=== PATIENT | male | born 1960 | race Caucasian/White ===

== ENCOUNTER 2017-11-23 11:00 | Emergency (ER) | payer MEDICARE ==
[~2017-11-23] VITALS: Ht 180.3 cm; Wt 80.7 kg
[~2017-11-23 11:00] MED LIST: ASPIR-LOW81 MG PO; CIPRO500 MG PO; LIPITOR80 MG PO; NORVASC5 MG PO; ZESTRIL20 MG PO
[2017-11-23] MEDS ORDERED: XANAX0.5 MG PO (12:43)
--- NOTE | 2017-11-24 07:15 | EKG ---
[facility] [address] [facility] [place] [address] Signed Sinus bradycardia Minimal voltage criteria for LVH, may be normal variant Borderline ECG No previous ECGs available Confirmed by RAHEEL DORSEY MD ([id number]) on 11/24/2017 7:15:19 AM Electronically Signed By: RAHEEL DORSEY MD 11/24/17 0715 PATIENT NAME: SUSHIL MATTHEWS Electrocardiogram DATE OF : 56 PHYSICIAN: RAHEEL DORSEY MD REPORT #: [id number] REPORT IS CONFIDENTIAL AND NOT TO BE RELEASED WITHOUT AUTHORIZATION
== END 2017-11-23 13:34 | disposition home or self-care (01) ==
LOC: ED 11:00
DX: R07.89 Other chest pain (principal); F06.4 Anxiety disorder due to known physiological condition; I10 Essential (primary) hypertension; Z87.891 Personal history of nicotine dependence; Z88.5 Allergy status to narcotic agent; Z79.82 Long term (current) use of aspirin; Z79.899 Other long term (current) drug therapy
CPT/HCPCS: 71045; 80048; 81001; 84484; 85025; 93005; 93010; 96374; 99283; J2060

== ENCOUNTER 2018-01-15 09:40 | Emergency (ER) | payer MEDICARE ==
[~2018-01-15] VITALS: Ht 180.3 cm; Wt 80.7 kg
--- OUTSIDE RECORDS SUMMARY | ~2018-01-15 | XMS | Clinical Summary ---
Demographics + + + | Address | [address] | | | [place] [address] | + + + | Home Phone | | + + + | Preferred Language | Unknown | + + + | Marital Status | Single | + + + | Christian Affiliation | Unknown | + + + | Race | Unknown | + + + | Ethnic Group | Unknown | + + + Author + + + | Author | [facility] | | | and [place] | + + + | Organization | [facility] | | | and [place] | + + + | Address | Unknown | + + + | Phone | Unavailable | + + + Support + + + + + | Name | Relationship | Address | Phone | + + + + + | Manuel Matthews | ECON | [address] | | | | [place], [place] | | | | | [address] | | + + + + + Care Team Providers + +------+ + | Care Instructor Private Name | Role | Phone | + +------+ + | Alber Sorensen DO | PP | Unavailable | + +------+ + Allergies + + + + + + | Active Allergy | Reactions | Severity | Noted | Comments | | | | | Date | | + + + + + + | Hydrocodone | Itching | Medium | 11/07/19 | | | | | | 16 | | + + + + + + | Hydrocodone-Acetamin | Itching | Low | | | | ophen | | | | | + + + + + + Current Medications + + +-------+---------+------+------+-------+ | Prescription | Sig. | Disp. | Refills | Star | End | Statu | | | | | | t | Date | s | | | | | | Date | | | + + +-------+---------+------+------+-------+ | lisinopril | | | | 09/1 | | Activ | | (PRINIVIL, ZESTRIL) | | | | 4/20 | | e | | 20 mg tablet | | | | 12 | | | + + +-------+---------+------+------+-------+ | amLODIPine | Take 5 mg by mouth. | | | | | Activ | | (NORVASC) 5 mg | | | | | | e | | tablet | | | | | | | + + +-------+---------+------+------+-------+ | aspirin 81 mg EC | Take 81 mg by mouth. | | | | | Activ | | tablet | | | | | | e | + + +-------+---------+------+------+-------+ | | Take 1 tablet by | | | | | Activ | | oxyCODONE-acetaminop | mouth. | | | | | e | | hen (PERCOCET) 5-325 | | | | | | | | mg per tablet | | | | | | | + + +-------+---------+------+------+-------+ | atorvaSTATin | Take 20 mg by mouth | | | | | Activ | | (LIPITOR) 20 mg | nightly. | | | | | e | | tablet | | | | | | | + + +-------+---------+------+------+-------+ Active Problems + + + | Problem | Noted Date | + + + | Foraminal stenosis of cervical region | 05/18/2017 | + + + | Cervical cord myelomalacia (HCC) | 11/05/2014 | + + + | S/P cervical spinal fusion | 11/05/2014 | + + + | Degenerative disc disease, cervical | 11/05/2014 | + + + | Spondylolisthesis of lumbar region | 11/05/2014 | + + + | Foraminal stenosis of lumbar region | 11/05/2014 | + + + | Degenerative disc disease, lumbar | 11/05/2014 | + + + | CARPAL TUNNEL SYNDROME | | + + + | METATARSALGIA | | + + + | DISC DISEASE, LUMBOSACRAL SPINE | | + + + | DISC DISEASE, CERVICAL | | + + + | ARTHROSCOPY, HX OF CERVICAL | | + + + | CERVICAL RADICULOPATHY | | + + + | SPONDYLOLISTHESIS | | + + + | SHOULDER PAIN, BILATERAL | | + + + Encounters +--------+ + + + + | Date | Type | Specialty | Care Team | Description | +--------+ + + + + | 01/11/ | Telephone | | Mike Feliciano MD | Referral Question | | 2018 | | | | | +--------+ + + + + from Last 3 Months Family History + + +------+ + | Medical History | Relation | Name | Comments | + + +------+ + | Other (see comment) | Father | | Heart problems (Heart bypass) | + + +------+ + | No Known Problems | Maternal | | | | | Grandfath | | | | | er | | | + + +------+ + | No Known Problems | Maternal | | | | | Grandmoth | | | | | er | | | + + +------+ + | Other (see comment) | Mother | | Heart problems (Heart bypass) | + + +------+ + | No Known Problems | Paternal | | | | | Grandfath | | | | | er | | | + + +------+ + | No Known Problems | Paternal | | | | | Grandmoth | | | | | er | | | + + +------+ + | No Known Problems | Son | | | + + +------+ + + +------+--------+ + | Relation | Name | Status | Comments | + +------+--------+ + | Father | | Other | STATUS UNKNOWN | + +------+--------+ + | Maternal Grandfather | | Other | STATUS UNKNOWN | + +------+--------+ + | Maternal Grandmother | | Other | STATUS UNKNOWN | + +------+--------+ + | Mother | | Other | STATUS UNKNOWN | + +------+--------+ + | Paternal Grandfather | | Other | STATUS UNKNOWN | + +------+--------+ + | Paternal Grandmother | | Other | STATUS UNKNOWN | + +------+--------+ + | Son | | Alive | | + +------+--------+ + Social History + +-------+ +--------+ + | Tobacco Use | Types | Packs/Day | Years | Date | | | | | Used | | + +-------+ +--------+ + | Former Smoker | | 0.5 | 30 | Quit: 2016 | + +-------+ +--------+ + + +---+---+---+ | Smokeless Tobacco: | | | | | Never Used | | | | + +---+---+---+ + + +---------+ + | Alcohol Use | Drinks/We | oz/Week | Comments | | | ek | | | + + +---------+ + | Yes | | | Rare | + + +---------+ + + + + | Sex Assigned at | Date Recorded | | | | + + + | Not on file | | + + + Last Filed Vital Signs + + + + | Vital Sign | Reading | Time Taken | + + + + | Blood Pressure | 137/77 | 05/18/20171241 PDT | + + + + | Pulse | 60 | 05/18/20171241 PDT | + + + + | Temperature | - | - | + + + + | Respiratory Rate | 16 | 05/18/20171241 PDT | + + + + | Oxygen Saturation | - | - | + + + + | Inhaled Oxygen | - | - | | Concentration | | | + + + + | Weight | 73 kg (161 lb) | 05/18/20171241 PDT | + + + + | Height | 180.3 cm (5' 11") | 05/18/20172 PDT | + + + + | Body Mass Index | 22.45 | 05/18/20171241 PDT | + + + + Plan of Treatment + + + + + | Health Maintenance | Due Date | Last Done | Comments | + + + + + | Hepatitis C | | | | | Screening | 8 | | | + + + + + | Vaccine: | | | | | Dtap/Tdap/Td (1 - | 7 | | | | Tdap) | | | | + + + + + | COLON CANCER | | | | | SCREENING | 8 | | | | (COLONOSCOPY EVERY | | | | | 10 YEARS 50-75) | | | | + + + + + | Statin Therapy | | | | | (optimal intensity) | 5 | | | + + + + + | Vaccine: Influenza | | | | | (Season Ended) | 8 | | | + + + + + Results Not on filefrom Last 3 Months Insurance + +--------+ +--------+ +---------+ | Payer | Benefi | Subscriber | Type | Phone | Address | | | t Plan | ID | | | | | | / | | | | | | | Group | | | | | + +--------+ +--------+ +---------+ | MEDICARE | MEDICA | xxxxxxxxxx | Medica | [phone] | | | RE | | re | [phone] | | | | PART A | | | | | | | AND B | | | | | + +--------+ +--------+ +---------+ + +--------+ +--------+ + + | Guarantor Name | Accoun | Relation to | Date | Phone | Billing Address | | | t Type | Patient | of | | | | | | | | | | + +--------+ +--------+ + + | TRAVIS MATTHEWS | Person | Self [birth year] | Home: | [address] | | | al/Fam | | 1960 | [phone] | [place] [address] | | | [place]a | | | [phone] | | + +--------+ +--------+ + +
--- OUTSIDE RECORDS SUMMARY | ~2018-01-15 | XMS | Encounter Summary ---
Demographics + + + | Address | [address] | | | [place] [address] | + + + | Home Phone | | + + + | Preferred Language | Unknown | + + + | Marital Status | Single | + + + | Rastafari Affiliation | Unknown | + + + | Race | Unknown | + + + | Ethnic Group | Unknown | + + + Author + + + | Author | [facility] | | | and [place] | + + + | Organization | [facility] | | | and [place] | + + + | Address | Unknown | + + + | Phone | Unavailable | + + + Support + + + + + | Name | Relationship | Address | Phone | + + + + + | Manuel Stone | ECON | [address] | | | | | [place] | | | | | [address] | | + + + + + Care Team Providers + +------+ + | Care Net Developer Architect Name | Role | Phone | + +------+ + | Alber Sorensen DO | PCP | Unavailable | + +------+ + Reason for Visit + + + | Reason | Comments | + + + | Referral Question | | + + + Encounter Details +--------+ + + + + | Date | Type | Department | Care Team | Description | +--------+ + + + + | 01/11/ | Telephone | [facility] | Mike Feliciano MD | Referral Question | | 2018 | | NEUROSUR[address]ERY [address] | [address] [place] | | | | | [address] | [address] [place], [place] | | | | | [place], [place] | [address] | | | | | [address] | | | | | | [phone] | | | +--------+ + + + + Social History + +-------+ +--------+ + [...] on file | | + + + as of this encounter Plan of Treatment Not on fileas of this encounter Visit Diagnoses Not on filein this encounter"
--- OUTSIDE RECORDS SUMMARY | ~2018-01-15 | XMS | Clinical Summary ---
Demographics + + + | Address | [address] | | | [place] [address] | + + + | Home Phone | | + + + | Preferred Language | Unknown | + + + | Marital Status | Single | + + + | Advent Affiliation | Unknown | + + + | Race | Unknown | + + + | Ethnic Group | Unknown | + + + Author + + + | Author | [facility] | + + + | Organization | [facility] | + + + | Address | Unknown | + + + | Phone | Unavailable | + + + Support + + +---------+ + | Name | Relationship | Address | Phone | + + +---------+ + | Manuel Matthews | ECON | Unknown | | + + +---------+ + Care Team Providers + +------+ + | Care Technical Administrator Name | Role | Phone | + +------+ + | Donnell Sorensen DO | PP | | + +------+ + Allergies + + [...] | amLODIPine | Take 5 mg by mouth | | | | | Activ | | (NORVASC) 5 MG | daily. | | | | | e | | tablet | | | | | | | + + +-------+---------+------+------+-------+ | aspirin EC 81 MG | Take 81 mg by mouth | | | | | Activ | | EC tablet | daily with | | | | | e | | | breakfast. | | | | | | + + +-------+---------+------+------+-------+ | atorvastatin | Take 80 mg by mouth | | | | | Activ | | (LIPITOR) 80 MG | nightly. | | | | | e | | tablet | | | | | | | + + +-------+---------+------+------+-------+ | lisinopril | Take 20 mg by mouth | | | | | Activ | | (ZESTRIL) 20 MG | daily. | | | | | e | | tablet | | | | | | | + + +-------+---------+------+------+-------+ | | Take 1 tablet by | | | | | Activ | | oxyCODONE-acetaminop | mouth every 4 (four) | | | | | e | | hen (PERCOCET) 5-325 | hours as needed for | | | | | | | MG per tablet | Pain. | | | | | | + + +-------+---------+------+------+-------+ Active Problems Not on file Family History + + +------+ + | Medical History | Relation | Name | Comments | + + +------+ + | Peripheral vascular | Brother | | | | disease | | | | + + +------+ + | Coronary art dis | Father | | | + + +------+ + | Peripheral vascular | Mother | | | | disease | | | | + + +------+ + + +------+--------+ + | Relation | Name | Status | Comments | + +------+--------+ + | Brother | | Alive | | + +------+--------+ + | Father | | | | + +------+--------+ + | Mother | | | | + +------+--------+ + Social History + +-------+ +--------+ + | Tobacco Use | Types | Packs/Day | Years | Date | | | | | Used | | + +-------+ +--------+ + | Former Smoker | | 1 | 38 | Quit: 10/20/2015 | + +-------+ +--------+ + + +---+---+---+ | Smokeless Tobacco: | | | | | Never Used | | | | + +---+---+---+ + + +---------+ + | Alcohol Use | Drinks/We | oz/Week | Comments | | | ek | | | + + +---------+ + | No | | | | + + +---------+ + + + + | Sex Assigned at | Date Recorded | | | | + + + | Not on file | | + + + Last Filed Vital Signs + + + + | Vital Sign | Reading | Time Taken | + + + + | Blood Pressure | 153/83 | 11/10/2015 10:33 AM PST | + + + + | Pulse | 55 | 11/10/2015 10:33 AM PST | + + + + | Temperature | - | - | + + + + | Respiratory Rate | - | - | + + + + | Oxygen Saturation | 98% | 11/10/2015 10:33 AM PST | + + + + | Inhaled Oxygen | - | - | | Concentration | | | + + + + | Weight | 79.4 kg (175 lb) | 11/10/2015 10:33 AM PST | + + + + | Height | - | - | + + + + | Body Mass Index | - | - | + + + + Plan of Treatment + + + + + | Health Maintenance | Due Date | Last Done | Comments | + + + + + | Vaccine: | | | | | Dtap/Tdap/Td (1 - | 7 | | | | Tdap) | | | | + + + + + | Colon Cancer | | | | | Screening | 8 | | | | (Colonoscopy) | | | | + + + + + | Vaccine: Influenza | | | | | (Season Ended) | 8 | | | + + + + + Results Not on filefrom Last 3 Months Insurance + +--------+ +------+-------+ + | Payer | Benefi | Subscriber | Type | Phone | Address | | | t Plan | ID | | | | | | / | | | | | | | Group | | | | | + +--------+ +------+-------+ + | MEDICARE | MEDICA | xxxxxxxxxx | | | [address] | | | RE | | | | [place] [id number] | | | IP-OP | | | | | + +--------+ +------+-------+ + + +--------+ +--------+ + + | Guarantor Name | Accoun | Relation to | Date | Phone | Billing Address | | | t Type | Patient | of | | | | | | | | | | + +--------+ +--------+ + + | TRAVIS MATTHEWS | Person | Self | [birth year] | Home: | [address] | | | al/Fam | | 1960 | [phone] | [place] | | | tha | | | [phone] | [phone] | + +--------+ +--------+ + +"
--- OUTSIDE RECORDS SUMMARY | ~2018-01-15 | XMS | Clinical Summary ---
Demographics + + + | Address | [address] | | | [place] [address] | + + + | Home Phone | | + + + | Preferred Language | Unknown | + + + | Marital Status | Single | + + + | Anabaptist Affiliation | Unknown | + + + | Race | Unknown | + + + | Ethnic Group | Unknown | + + + Author + + + | Author | [facility] | + + + | Organization | [facility] | + + + | Address | Unknown | + + + | Phone | Unavailable | + + + Support + + +---------+ + | Name | Relationship | Address | Phone | + + +---------+ + | Manuel Matthews | ECON | Unknown | | + + +---------+ + Care Team Providers + +------+ + | Care Finishing Supervisor Name | Role | Phone | + [...] | xxxxxxxxxx | | | [address] | | | RE | | | | [place] [phone] | | | IP-OP | | | [...] | [place]a | | | [phone] | [phone] | + +--------+ +--------+ + +"
--- OUTSIDE RECORDS SUMMARY | ~2018-01-15 | XMS | Encounter Summary ---
Demographics + + + | Address | [address] | | | [place] [address] | + + + | Home Phone | | + + + | Preferred Language | Unknown | + + + | Marital Status | Single | + + + | Worship Affiliation | Unknown | + + + | Race | Unknown | + + + | Ethnic Group | Unknown | + + + Author + + + | Author | [facility] | | | and [place] | + + + | Organization | [facility] | | | and [place] | | | | | [address] | | + + + + + Care Team Providers + +------+ + | Care American Indian Studies Professor Name | Role | Phone | + [...] [place], [place] | | | | | [place], [place] | [address] | | | | | [address] | | | | | | [phone] | | | +--------+ + + + [...]
--- OUTSIDE RECORDS SUMMARY | ~2018-01-15 | XMS | Clinical Summary ---
Demographics + + + | Address | [address] | | | [place] [address] | + + + | Home Phone | | + + + | Preferred Language | Unknown | + + + | Marital Status | Single | + + + | Advent Affiliation | Unknown | + + + | Race | Unknown | + + + | Ethnic Group | Unknown | + + + Author + + + | Author | [facility] | | | and [place] | + + + | Organization | [facility] | | | and [place] | [...] [place], [place] | | | | | [address] | | + + + + + Care Team Providers + +------+ + | Care Agricultural Equipment Design Engineer Name | Role | Phone | + [...] | 1960 | [phone] | [place] [address] | | | [place]a | | | [phone] | | + +--------+ +--------+ + +
[~2018-01-15 09:40] MED LIST changes: +XANAX0.5 MG PO
[2018-01-15] MEDS ORDERED: MOBIC15 MG PO (09:55)
[2018-01-15] MEDS ORDERED: FLUOXETINE HCL20 MG PO (09:55)
[2018-01-15] MEDS ORDERED: LISINOPRIL-HCT1 EAC1 PO (09:56)
[2018-01-15] MEDS ORDERED: MELATONIN5 M2 PO (09:56)
[2018-01-15] MEDS ORDERED: TRAZODONE HCL50 MG PO (13:13)
== END 2018-01-15 13:30 | disposition home or self-care (01) ==
LOC: ED 09:40
DX: F41.9 Anxiety disorder, unspecified (principal); G47.00 Insomnia, unspecified; I10 Essential (primary) hypertension; Z88.5 Allergy status to narcotic agent; Z79.899 Other long term (current) drug therapy; Z79.82 Long term (current) use of aspirin
CPT/HCPCS: 36415; 80053; 80176; 81001; 85025; 99283; G0480

== ENCOUNTER 2018-09-28 10:05 | Emergency (ER) | payer MEDICARE ==
[~2018-09-28] VITALS: Ht 180.3 cm; Wt 70.3 kg
[~2018-09-28 10:05] MED LIST changes: +FLUOXETINE HCL20 MG PO; +LISINOPRIL-HCT1 EAC1 PO; +MELATONIN5 M2 PO; +MOBIC15 MG PO; +TRAZODONE HCL50 MG PO
[2018-09-28] MEDS ORDERED: ULTRAM50 MG PO (10:11)
[2018-09-28] MEDS ORDERED: ONDANSETRON ODT8 MG PO (12:51)
== END 2018-09-28 13:00 | disposition home or self-care (01) ==
LOC: ED 10:05
DX: G43.A0 Cyclical vomiting, in migraine, not intractable (principal); I10 Essential (primary) hypertension; F41.9 Anxiety disorder, unspecified; Z79.899 Other long term (current) drug therapy
CPT/HCPCS: 36415; 71045; 80053; 82150; 83605; 83690; 85025; 96361; 96372; 96374; 96375; 99283-25; J1885; J2405; J3486; J7030

== ENCOUNTER 2020-09-08 04:51 | Emergency (ER) | payer MEDICARE ==
[~2020-09-08] VITALS: Ht 180.3 cm; Wt 80.7 kg
[~2020-09-08 04:51] MED LIST changes: +ONDANSETRON ODT8 MG PO; +ULTRAM50 MG PO
[2020-09-08] MEDS ORDERED: METOPROLOL SUCC50 MG PO (05:10)
[2020-09-08] MEDS ORDERED: NITROGLYCERIN0.4 MG SL (05:11)
[2020-09-08] MEDS ORDERED: ASPIRIN EC325 MG PO (05:12)
--- NOTE | 2020-09-08 12:43 | EKG ---
[facility] [address] [place] [address] Signed Sinus bradycardia Otherwise normal ECG When compared with ECG of 23-NOV-2017 11:05, No significant change was found Confirmed by RAHEEL DORSEY MD ([id number]) on 09/08/2020 12:42:53 PM Electronically Signed By: RAHEEL DORSEY MD 09/08/20 1243 PATIENT NAME: SUSHIL MATTHEWS Electrocardiogram DATE OF : 56 PHYSICIAN: RAHEEL DORSEY MD REPORT #: [id number] REPORT IS CONFIDENTIAL AND NOT TO BE RELEASED WITHOUT AUTHORIZATION
== END 2020-09-08 06:38 | disposition home or self-care (01) ==
LOC: ED 04:51
DX: R10.9 Unspecified abdominal pain (principal); R07.89 Other chest pain; I10 Essential (primary) hypertension; F41.9 Anxiety disorder, unspecified; Z87.891 Personal history of nicotine dependence; Z79.899 Other long term (current) drug therapy; Z79.82 Long term (current) use of aspirin
CPT/HCPCS: 71045; 80053; 81001; 83735; 84484; 85025; 93005; 93010; 99284-25

== ENCOUNTER 2020-10-19 15:40 | Emergency (ER) | payer MEDICARE, OTHER ==
[~2020-10-19] VITALS: Ht 180.3 cm; Wt 80.7 kg
[~2020-10-19 15:40] MED LIST changes: +ASPIRIN EC325 MG PO; +METOPROLOL SUCC50 MG PO; +NITROGLYCERIN0.4 MG SL
== END 2020-10-19 20:09 | disposition home or self-care (01) ==
LOC: ED 15:40
DX: R10.84 Generalized abdominal pain (principal); I10 Essential (primary) hypertension; Z87.891 Personal history of nicotine dependence
CPT/HCPCS: 74176; 80053; 81001; 83690; 83735; 85025; 99284-25

== ENCOUNTER 2024-06-18 14:16 | Emergency (ER) | payer MEDICARE ==
[~2024-06-18] VITALS: Ht 180.3 cm; Wt 76.7 kg
[2024-06-18] MEDS ORDERED: ATORVASTATIN CA80 MG PO (14:35)
[2024-06-18] MEDS ORDERED: LOSARTAN-HCTZ1 EACH PO (14:35)
[2024-06-18] MEDS ORDERED: METHYLPREDNISOLO4 M1 PO (14:35)
[2024-06-18] MEDS ORDERED: ZANAFLEX4 MG PO (14:35)
[2024-06-18] MEDS ORDERED: CLOPIDOGREL75 MG PO (14:35)
[2024-06-18] MEDS ORDERED: LIDOCAINE HCL 4% 1 EACH PATCH TD ONE (14:45)
[2024-06-18] MEDS ORDERED: KETOROLAC TROMETHAMINE 30 MG/ML VIAL IV ONE (14:45)
[2024-06-18] MEDS ORDERED: ondansetron HCL 4 MG/2 ML VIAL IV ONE (14:45)
[2024-06-18] MEDS ORDERED: diazePAM 10 MG/2 ML SYR IV ONE (15:00)
[2024-06-18] MEDS ORDERED: HYDROmorphone HCL 1 MG/ML SYR IV ONE (15:00)
[2024-06-18 16:10] VITALS: BP 148/77
[2024-06-18] MEDS ORDERED: PERCOCET 5-3251 EACH PO (16:15)
[2024-06-18] MEDS ORDERED: CYCLOBENZAPRINE10 MG PO (16:15)
[2024-06-18] MEDS ORDERED: LIDODERM1 EACH TOP (16:15)
[2024-06-18] MEDS ORDERED: LIDOCAINE PATCH REMOVAL 1 EA TD SCH (21:00)
== END 2024-06-18 16:20 | disposition home or self-care (01) ==
LOC: ED 14:16
DX: M25.552 Pain in left hip (principal); I10 Essential (primary) hypertension; Z87.891 Personal history of nicotine dependence; Z79.01 Long term (current) use of anticoagulants
CPT/HCPCS: 73502; 96374; 96375; 99283-25; A9270; J1170; J2405; J3360

== ENCOUNTER 2024-12-28 23:32 | Emergency (ER) | payer MEDICARE ==
[~2024-12-28] VITALS: Ht 180.3 cm; Wt 80.0 kg
[~2024-12-28 23:32] MED LIST changes: +ATORVASTATIN CA80 MG PO; +CLOPIDOGREL75 MG PO; +CYCLOBENZAPRINE10 MG PO; +LIDODERM1 EACH TOP; +LOSARTAN-HCTZ1 EACH PO; +METHYLPREDNISOLO4 M1 PO; +PERCOCET 5-3251 EACH PO; +ZANAFLEX4 MG PO
[2024-12-28] MEDS ORDERED: LORazepam 2 MG/ML VIAL IV ONE (23:45)
[2024-12-28] MEDS ORDERED: SODIUM CHLORIDE 0.9% 500 ML IV PRN (23:45)
[2024-12-29 00:04] LABS: BASOPHILS 0.2 % (0-2); EOSINOPHILS 0.1 % (0-6); HEMATOCRIT 38.7 % (35.0-50.0); HEMOGLOBIN 13.5 g/dL (12.0-18.0); LYMPHOCYTES 8.3 % (24-44); MCH 31.5 (27-36); MCV 90.1 fl (81-99); MONOCYTES 5.4 % (0-12); PLATELET COUNT 282 K/uL (140-440); RBC 4.29 M/ul (4.3-5.7); RDW 13.7 (10.5-15.0)
[2024-12-29 00:18] LABS: ALBUMIN 4.1 g/dL (3.4-5.0); ALBUMIN/GLOBULIN RATIO 1.37 (1.1-2.4); ANION GAP 14.1 (7-21); BUN/CREATININE RATIO 11.2 (6.0-28.6); CALCIUM 8.8 mg/dL (8.5-10.1); CREATININE, SERUM 1.16 mg/dL (0.70-1.30); MAGNESIUM 1.5 mg/dL (1.8-2.4); POTASSIUM 3.1 mmol/L (3.5-5.1); PROTEIN, TOTAL 7.1 g/dL (6.4-8.2)
[2024-12-29] MEDS ORDERED: MAGNESIUM SULFATE 2 GM/50 ML BAG IV ONE (00:30)
[2024-12-29] MEDS ORDERED: POTASSIUM CHLORIDE 10 MEQ TABCR PO ONE (00:30)
[2024-12-29] MEDS ORDERED: HYDROXYZINE HCL25 MG PO (00:32)
[2024-12-29] MEDS ORDERED: LORazepam 1 MG HOME.PACK PO ONE (00:45)
[2024-12-29 05:37] VITALS: BP 144/52
== END 2024-12-29 05:30 | disposition home or self-care (01) ==
LOC: ED 23:32
PROVIDERS: Family Medicine
DX: F15.10 Other stimulant abuse, uncomplicated (principal); I10 Essential (primary) hypertension; I25.10 Atherosclerotic heart disease of native coronary artery without angina pectoris; E78.49 Other hyperlipidemia; Z87.891 Personal history of nicotine dependence; Z79.01 Long term (current) use of anticoagulants; Z79.899 Other long term (current) drug therapy
CPT/HCPCS: 36415; 80053; 83735; 85025; 96365; 96375; 99283-25; A9270; J2060; J3475; J7040